=== PATIENT | female | born 1995 | race Two or more races ===

== ENCOUNTER 2017-10-10 22:11 | Emergency (ER) | payer OTHER ==
[~2017-10-10] VITALS: Ht 160 cm; Wt 67.6 kg
[~2017-10-10 22:11] MED LIST: MACROBID100 MG PO; MOTRIN600 MG PO; PROAIR HFA8.5 GM; PYRIDIUM100 MG PO; ULTRAM50 MG PO
[2017-10-11 00:46] VITALS: BP 128/76
== END 2017-10-11 00:47 | disposition home or self-care (01) ==
LOC: EME 22:11 → RME 22:11
PROC: 3E0234Z Introduction of Serum, Toxoid and Vaccine into Muscle, Percutaneous Approach (ICD-10-PCS; principal; 2017-10-11)
DX: S61.012A Laceration without foreign body of left thumb without damage to nail, initial encounter (principal); W27.8XXA Contact with other nonpowered hand tool, initial encounter; Y99.0 Civilian activity done for income or pay; Z23 Encounter for immunization

== ENCOUNTER 2018-04-14 14:54 | Emergency (ER) | payer OTHER ==
[~2018-04-14] VITALS: Ht 160 cm; Wt 71.4 kg
[2018-04-14 16:14] VITALS: BP 116/68
== END 2018-04-14 16:18 | disposition home or self-care (01) ==
LOC: EME 14:54
DX: S93.401A Sprain of unspecified ligament of right ankle, initial encounter (principal); X50.1XXA Overexertion from prolonged static or awkward postures, initial encounter; Y92.480 Sidewalk as the place of occurrence of the external cause
CPT/HCPCS: 73610; 99281; 99284